=== PATIENT | male | born 1995 | race Caucasian/White ===

== ENCOUNTER 2018-10-20 20:43 | Emergency (ER) | payer OTHER ==
[~2018-10-20] VITALS: Ht 170.2 cm; Wt 74.8 kg
[2018-10-20 20:46] VITALS: Ht 170.2 cm; Wt 74.8 kg
[2018-10-20 21:44] LABS: BASOPHIL % 0.2 % (0-2); PLATELET COUNT 288 x10^3mcL (130-400); RED CELL DISTRIBUTION WIDTH 13.6 % (11.5-14.5)
[2018-10-20 21:54] LABS: CALCIUM 8.8 mg/dL (8.5-10.1); CARBON DIOXIDE 29.9 mmol/L (21-32); CHLORIDE SERUM 99 mmol/L (98-107); CREATININE SERUM 1.1 mg/dL (0.7-1.3); GFR1 > 60 mL/min; GLUCOSE SERUM 134 mg/dL (74-106)
[2018-10-20 22:03] LABS: ALBUMIN 3.7 g/dL (3.4-5.0); ALKALINE PHOSPHATASE 61 U/L (46-116); ALT/SGPT 100 U/L (16-63); AST/SGOT 25 U/L (15-37); BILIRUBIN TOTAL 0.41 mg/dL (0.20-1.00); TOTAL PROTEIN, SERUM 7.1 g/dL (6.4-8.2)
[2018-10-20 22:45] LABS: SODIUM SERUM 142 mmol/L (136-145)
[2018-10-20] MEDS ORDERED: NIFEDIPINE30 MG PO (22:56)
[2018-10-20] MEDS ORDERED: NOVOLOG FLEX100 U/M1 SQ (22:58)
[2018-10-20] MEDS ORDERED: LANTUS SOLOS100 U/M1 SQ (22:59)
[2018-10-20] MEDS ORDERED: BENAZEPRIL HYDR20 M1 PO (23:00)
[2018-10-20] MEDS ORDERED: LASIX20 MG PO (23:01)
[2018-10-21 01:27] VITALS: BP 145/90
== END 2018-10-21 01:30 | disposition home or self-care (01) ==
LOC: ED 20:43
PROVIDERS: Emergency Medicine
DX: R55 Syncope and collapse (principal); T50.7X1A Poisoning by analeptics and opioid receptor antagonists, accidental (unintentional), initial encounter; Z86.19 Personal history of other infectious and parasitic diseases; Y92.89 Other specified places as the place of occurrence of the external cause
CPT/HCPCS: G0480; J7030